=== PATIENT | male | born 1980 | race Two or more races ===

== ENCOUNTER 2021-11-30 08:07 | Inpatient (IN) | payer MEDICAID, OTHER ==
[~2021-11-30] VITALS: Ht 170.2 cm; Wt 91.0 kg
[2021-11-30] MEDS ORDERED: ONDANSETRON HCL 4 MG/2 ML VIAL IV ONE (08:30)
[2021-11-30] MEDS ORDERED: SODIUM CHLORIDE 0.9% 1,000 ML IV ONE ×2 (08:30→09:45)
[2021-11-30] MEDS ORDERED: HYDROmorphone HCL 2 MG/ML VL/or syr IV ONE ×2 (08:30→11:30)
[2021-11-30 09:13] LABS: Basophils # (auto) 0 10 ^3/uL (0-0.2); Basophils % (auto) 0.5 % (0.0-2.0); Eosinophils # (auto) 0 10 ^3/uL (0-0.8); Eosinophils % (auto) 0.7 % (0.0-7.0); Hematocrit 40.1 % (41.0-53.0); Hemoglobin 13.4 g/dL (13.5-17.5); Lymphocytes # (auto) 2.8 10 ^3/uL (0.4-5.4); Lymphocytes % (auto) 40.5 % (10.0-50.0); Mean Corpuscular Hemoglobin 29.7 pg (28.0-32.0); Mean Corpuscular Hgb Conc. 33.4 g/dL (32.0-36.0); Mean Corpuscular Volume 88.8 fL (80.0-100.0); Monocytes # (auto) 0.5 10 ^3/uL (0-1.3); Monocytes % (auto) 7.9 % (0.0-12.0); Neutrophils # (auto) 3.5 10 ^3/uL (1.6-8.6); Neutrophils % (auto) 50.4 % (37.0-80.0); Nucleated Red Blood Cells % 0.1 %; Red Blood Cells 4.52 10^6/uL (4.5-5.90); Red Cell Distribution Width 14.9 % (11.8-14.3); White Blood Cell 6.9 10^3/uL (4.4-10.8)
[2021-11-30 09:21] LABS: Urine Bacteria NONE SEEN /hpf (None Seen); Urine Blood 3+ /uL (Negative); Urine Budding Yeast FEW /hpf (None Seen); Urine WBC 2 /hpf (0 - 3)
[2021-11-30 09:25] LABS: Urine Specific Gravity 1.023 (1.001-1.035)
[2021-11-30 09:32] LABS: Calcium 9.9 mg/dL (8.5-10.1)
[2021-11-30 09:35] LABS: Bilirubin, Total 0.4 mg/dL (0.2-1.0); Total Protein 8.6 g/dL (6.4-8.2)
[2021-11-30] MEDS ORDERED: cefTRIAXone 1GM/50ML D5W 50 ML IV ONE (09:45)
[2021-11-30] MEDS ORDERED: TAMSULOSIN HYDROCHLORIDE 0.4 MG CAP PO ONE (10:00)
[2021-11-30] MEDS ORDERED: MORPHINE SULFATE INJ 2 MG/ml SYRG IV PRN (10:30)
[2021-11-30] MEDS ORDERED: NITROGLYCERIN 0.4 MG SL TAB SL PRN (10:30)
[2021-11-30] MEDS ORDERED: KETOROLAC TROMETH 30 MG/ML 1ML VIAL IV ONE (11:30)
[2021-11-30] MEDS ORDERED: LORazepam 0.5 MG TAB PO PRN (12:30)
[2021-11-30] MEDS ORDERED: ONDANSETRON HCL 4 MG/2 ML VIAL IV PRN (12:30)
[2021-11-30] MEDS ORDERED: DOCUSATE SOD 100 MG CAP PO PRN (12:30)
[2021-11-30] MEDS ORDERED: hydrALAZINE HCL 20 MG/ML VL IV PRN (12:30)
[2021-11-30] MEDS ORDERED: DEXTROSE (50%) 50ML SYRG IV PRN (12:30)
[2021-11-30] MEDS ORDERED: MANNITOL FTV 25% 12.5 GM/50 ML 50 ML IV ONE (12:45)
[2021-11-30 12:59] LABS: Phosphorus 3.1 mg/dL (2.5-4.90)
[2021-11-30 13:05] LABS: INR 0.99 (0.9-1.15); Partial Thromboplastin Time 26.2 sec (23.6-33.0)
[2021-11-30] MEDS: SODIUM CHLORIDE 0.9% 1,000 ML IV SCH (15:14)
[2021-11-30] MEDS: KETOROLAC TROMETH 30 MG/ML 1ML VIAL IV PRN ×2 (16:07→23:10)
[2021-11-30 17:00] VITALS: BP 124/77
[2021-11-30] MEDS: InsuLIN REG 1unit/0.01ml Soln (100units/ml) SC SCH ×2 (17:00→22:37)
[2021-11-30] MEDS: ACCU-CHEK COMFORT CURVE STRIP VI SCH ×2 (17:06→22:33)
[2021-11-30] MEDS: TAMSULOSIN HYDROCHLORIDE 0.4 MG CAP PO SCH (17:44)
[2021-11-30] MEDS: HYDROcodone-ACET 5/325MG TAB PO PRN (17:44)
[2021-11-30] MEDS ORDERED: GLIP10TA9 PO (18:33)
[2021-11-30] MEDS ORDERED: ASPI-487 PO (18:33)
[2021-11-30] MEDS ORDERED: ASPI-325 PO (18:33)
[2021-11-30] MEDS ORDERED: ROSU1TAB14 PO (18:33)
[2021-11-30] MEDS ORDERED: METF-372 PO (18:33)
[2021-11-30] MEDS ORDERED: LISI-716 PO (18:33)
[2021-11-30 20:00] VITALS: BP 136/86
[2021-11-30] MEDS: HYDROmorphone HCL 2 MG/ML VL/or syr IV PRN (20:06)
[2021-11-30 22:00] VITALS: BP 113/75
[2021-11-30] MEDS: ATORVASTATIN 20 MG TAB PO SCH (22:33)
[2021-12-01] MEDS: HYDROmorphone HCL 2 MG/ML VL/or syr IV PRN ×3 (03:24→12:20)
[2021-12-01] MEDS: SODIUM CHLORIDE 0.9% 1,000 ML IV SCH ×2 (03:25→15:18)
[2021-12-01 05:00] VITALS: BP 118/70
[2021-12-01] MEDS: ACCU-CHEK COMFORT CURVE STRIP VI SCH ×4 (06:28→22:13)
[2021-12-01] MEDS: InsuLIN REG 1unit/0.01ml Soln (100units/ml) SC SCH ×4 (06:29→22:21)
[2021-12-01 06:54] LABS: Basophils # (auto) 0 10 ^3/uL (0-0.2); Basophils % (auto) 0.5 % (0.0-2.0); Eosinophils # (auto) 0.1 10 ^3/uL (0-0.8); Eosinophils % (auto) 1.1 % (0.0-7.0); Hematocrit 31.2 % (41.0-53.0); Hemoglobin 10.9 g/dL (13.5-17.5); Lymphocytes % (auto) 30.5 % (10.0-50.0); Mean Corpuscular Hemoglobin 31.1 pg (28.0-32.0); Mean Corpuscular Volume 88.8 fL (80.0-100.0); Monocytes # (auto) 0.6 10 ^3/uL (0-1.3); Monocytes % (auto) 9.3 % (0.0-12.0); Neutrophils # (auto) 3.9 10 ^3/uL (1.6-8.6); Neutrophils % (auto) 58.6 % (37.0-80.0); Nucleated Red Blood Cells % 0.1 %; Red Blood Cells 3.52 10^6/uL (4.5-5.90); White Blood Cell 6.6 10^3/uL (4.4-10.8)
[2021-12-01 07:25] LABS: INR 0.99 (0.9-1.15); Partial Thromboplastin Time 25.3 sec (23.6-33.0)
[2021-12-01 08:00] VITALS: BP_SYST 121; BP_SYST 136; BP_DIAS 75; BP_DIAS 86
[2021-12-01] MEDS ORDERED: MANNITOL FTV 25% 12.5 GM/50 ML 50 ML IV ONE (09:15)
[2021-12-01] MEDS: cefTRIAXone 1GM/50ML D5W 50 ML IV SCH (09:21)
[2021-12-01 09:30] LABS: Chloride 110 mmol/L (98-107); Potassium 4.7 mmol/L (3.5-5.1); Sodium 140 mmol/L (136-145)
[2021-12-01 09:37] LABS: Thyroid Stimulating Hormone 1.38 uIU/mL (0.358-3.74)
[2021-12-01 09:38] LABS: Alanine Aminotransferase 45 U/L (16-61); Albumin 3.1 g/dL (3.4-5.0); Alkaline Phosphatase 53 U/L (45-117); Anion Gap 9 (5-15); Aspartate Aminotransferase 17 U/L (15-37); BUN/Creatinine Ratio 15.6; Bilirubin, Total 0.4 mg/dL (0.2-1.0); Blood Urea Nitrogen 34 mg/dL (7-18); Calcium 8.8 mg/dL (8.5-10.1); Carbon Dioxide 21 mmol/L (21-32); Cholesterol 283 mg/dL (< 200); Creatine Kinase IFCC 66 U/L (39-308); GFR African American 43 mL/min; GFR Non-African American 35 mL/min; Glucose 153 mg/dL (74-106); HDL Cholesterol 31 mg/dL (40-59); Lipase 207 U/L (73-393); Magnesium 1.9 mg/dL (1.6-2.6); Phosphorus 3.8 mg/dL (2.5-4.90); Total Protein 6.8 g/dL (6.4-8.2); Triglycerides 832 mg/dL (< 150)
[2021-12-01] MEDS ORDERED: BENAZEPRIL HCL 10 MG TAB PO SCH (10:00)
[2021-12-01] MEDS ORDERED: ENOXAPARIN SOD 40 MG/0.4 ML SYRINGE SC SCH (10:00)
[2021-12-01] MEDS ORDERED: ASPirin 81 mg TAB PO SCH (10:00)
[2021-12-01] MEDS ORDERED: FAMOTIDINE (10MG/ML) 2ML VL IV SCH (10:00)
[2021-12-01 11:09] LABS: BUN/Creatinine Ratio 14.3; Calcium 8.4 mg/dL (8.5-10.1); Potassium 3.9 mmol/L (3.5-5.1)
[2021-12-01] MEDS ORDERED: LACTULOSE 20Gm/30ML SOLN PO ONE (11:15)
[2021-12-01 12:00] VITALS: BP 119/77
[2021-12-01] MEDS: HYDROcodone-ACET 5/325MG TAB PO PRN (14:28)
[2021-12-01] MEDS: MORPHINE SULFATE INJ 2 MG/ml SYRG IV PRN ×2 (15:17→20:10)
[2021-12-01 16:00] VITALS: BP 127/76
[2021-12-01] MEDS: TAMSULOSIN HYDROCHLORIDE 0.4 MG CAP PO SCH (17:59)
[2021-12-01 18:12] LABS: Urine WBC None Seen /hpf (0 - 3)
[2021-12-01 18:37] LABS: Amphetamine Screen, Urine NEGATIVE (NEGATIVE); Protein, Urine 22.8 mg/dL (0.0-11.9); Sodium Urine 106 mmol/L (40-220)
[2021-12-01 18:46] LABS: Barbiturate Scree,Urine NEGATIVE (NEGATIVE); Benzodiazephine Screen, Urine NEGATIVE (NEGATIVE); Cannabinoid Screen, Urine NEGATIVE (NEGATIVE); Cocaine Screen, Urine NEGATIVE (NEGATIVE); Opiate Scree,Urine POSITIVE (NEGATIVE); Phencyclidine Screen, Urine NEGATIVE (NEGATIVE)
[2021-12-01 18:58] LABS: Urine Bacteria NONE SEEN /hpf (None Seen); Urine Blood 1+ /uL (Negative); Urine Specific Gravity 1.023 (1.001-1.035)
[2021-12-01 22:00] VITALS: BP 129/77
[2021-12-01] MEDS: ATORVASTATIN 20 MG TAB PO SCH (22:13)
[2021-12-01] MEDS ORDERED: KETOROLAC TROMETH 30 MG/ML 1ML VIAL IV ONE (23:00)
[2021-12-02 05:00] VITALS: BP 127/78
[2021-12-02] MEDS: SODIUM CHLORIDE 0.9% 1,000 ML IV SCH ×3 (05:42→22:05)
[2021-12-02] MEDS: HYDROcodone-ACET 5/325MG TAB PO PRN ×2 (05:46→22:15)
[2021-12-02 06:15] LABS: Basophils # (auto) 0.1 10 ^3/uL (0-0.2); Basophils % (auto) 1.3 % (0.0-2.0); Eosinophils # (auto) 0.1 10 ^3/uL (0-0.8); Eosinophils % (auto) 1.9 % (0.0-7.0); Hemoglobin 11.4 g/dL (13.5-17.5); Lymphocytes # (auto) 1.7 10 ^3/uL (0.4-5.4); Lymphocytes % (auto) 31.7 % (10.0-50.0); Mean Corpuscular Hemoglobin 30.6 pg (28.0-32.0); Mean Corpuscular Hgb Conc. 34.5 g/dL (32.0-36.0); Mean Corpuscular Volume 88.7 fL (80.0-100.0); Monocytes # (auto) 0.5 10 ^3/uL (0-1.3); Monocytes % (auto) 10.5 % (0.0-12.0); Neutrophils # (auto) 2.9 10 ^3/uL (1.6-8.6); Neutrophils % (auto) 54.6 % (37.0-80.0); Nucleated Red Blood Cells % 0.1 %; Red Blood Cells 3.72 10^6/uL (4.5-5.90); Red Cell Distribution Width 14.9 % (11.8-14.3); White Blood Cell 5.2 10^3/uL (4.4-10.8)
[2021-12-02 06:24] LABS: Potassium 3.7 mmol/L (3.5-5.1)
[2021-12-02 06:30] LABS: BUN/Creatinine Ratio 9.5; Calcium 8.8 mg/dL (8.5-10.1)
[2021-12-02] MEDS ORDERED: VANCOMYCIN PER PHARMACY 0 MG IV SCH (07:00)
[2021-12-02] MEDS: ACCU-CHEK COMFORT CURVE STRIP VI SCH ×4 (07:42→22:04)
[2021-12-02] MEDS: InsuLIN REG 1unit/0.01ml Soln (100units/ml) SC SCH ×4 (07:49→22:04)
[2021-12-02 08:00] VITALS: BP 140/86
[2021-12-02 08:20] VITALS: BP 136/86
[2021-12-02] MEDS ORDERED: MANNITOL FTV 25% 12.5 GM/50 ML 50 ML IV ONE (08:30)
[2021-12-02] MEDS: VANCOMYCIN 1GM/250ML 250 ML IV ONE ×2 (08:33→11:04)
[2021-12-02 12:00] VITALS: BP 124/75
[2021-12-02] MEDS: HYDROmorphone HCL 2 MG/ML VL/or syr IV PRN ×2 (12:21→18:44)
[2021-12-02] MEDS: cefTRIAXone 1GM/50ML D5W 50 ML IV SCH (13:30)
[2021-12-02 16:00] VITALS: BP 132/86
[2021-12-02] MEDS: TAMSULOSIN HYDROCHLORIDE 0.4 MG CAP PO SCH (18:42)
[2021-12-02] MEDS: DOCUSATE SOD 100 MG CAP PO SCH (22:04)
[2021-12-02 22:54] VITALS: BP 151/90
[2021-12-03] MEDS: HYDROmorphone HCL 2 MG/ML VL/or syr IV PRN ×6 (01:08→22:00)
[2021-12-03 04:57] VITALS: BP 137/82
[2021-12-03] MEDS: ACCU-CHEK COMFORT CURVE STRIP VI SCH ×4 (06:24→22:45)
[2021-12-03] MEDS: InsuLIN REG 1unit/0.01ml Soln (100units/ml) SC SCH ×4 (06:26→22:46)
[2021-12-03 06:59] LABS: Basophils # (auto) 0 10 ^3/uL (0-0.2); Basophils % (auto) 0.5 % (0.0-2.0); Eosinophils # (auto) 0.1 10 ^3/uL (0-0.8); Eosinophils % (auto) 1.4 % (0.0-7.0); Hematocrit 31.6 % (41.0-53.0); Hemoglobin 10.7 g/dL (13.5-17.5); Lymphocytes # (auto) 1.7 10 ^3/uL (0.4-5.4); Lymphocytes % (auto) 24.5 % (10.0-50.0); Mean Corpuscular Hgb Conc. 33.8 g/dL (32.0-36.0); Mean Corpuscular Volume 88.6 fL (80.0-100.0); Monocytes % (auto) 14.5 % (0.0-12.0); Neutrophils % (auto) 59.1 % (37.0-80.0); Nucleated Red Blood Cells % 0.1 %; Red Blood Cells 3.56 10^6/uL (4.5-5.90); Red Cell Distribution Width 15.1 % (11.8-14.3); White Blood Cell 6.8 10^3/uL (4.4-10.8)
[2021-12-03 07:17] LABS: Potassium 3.8 mmol/L (3.5-5.1)
[2021-12-03 07:23] LABS: Albumin 2.8 g/dL (3.4-5.0); BUN/Creatinine Ratio 7.8; Bilirubin, Total 0.7 mg/dL (0.2-1.0); Calcium 8.7 mg/dL (8.5-10.1); Total Protein 7.1 g/dL (6.4-8.2)
[2021-12-03] MEDS: cefTRIAXone 1GM/50ML D5W 50 ML IV SCH (08:52)
[2021-12-03] MEDS: DOCUSATE SOD 100 MG CAP PO SCH ×2 (08:53→21:45)
[2021-12-03 09:00] VITALS: BP 139/87
[2021-12-03] MEDS ORDERED: VANCOMYCIN 1GM/250ML 250 ML IV SCH (09:00)
[2021-12-03] MEDS: SODIUM CHLORIDE 0.9% 1,000 ML IV SCH ×2 (11:58→18:00)
[2021-12-03] MEDS: HYDROcodone-ACET 5/325MG TAB PO PRN ×2 (11:58→17:14)
[2021-12-03 13:00] VITALS: BP 145/90
[2021-12-03] MEDS ORDERED: LACTULOSE 20Gm/30ML SOLN PO ONE (13:30)
[2021-12-03 17:00] VITALS: BP 150/86
[2021-12-03] MEDS: TAMSULOSIN HYDROCHLORIDE 0.4 MG CAP PO SCH (17:08)
[2021-12-03] MEDS: LACTULOSE 20Gm/30ML SOLN PO SCH (21:45)
[2021-12-03 22:00] VITALS: BP 179/81
[2021-12-04] MEDS: HYDROmorphone HCL 2 MG/ML VL/or syr IV PRN ×6 (01:55→22:20)
[2021-12-04] MEDS: SODIUM CHLORIDE 0.9% 1,000 ML IV SCH ×2 (04:07→14:02)
[2021-12-04 05:00] VITALS: BP 137/81
[2021-12-04] MEDS: ACCU-CHEK COMFORT CURVE STRIP VI SCH ×4 (06:03→22:10)
[2021-12-04] MEDS: InsuLIN REG 1unit/0.01ml Soln (100units/ml) SC SCH ×4 (06:04→22:17)
[2021-12-04 06:42] LABS: Potassium 3.9 mmol/L (3.5-5.1)
[2021-12-04 06:47] LABS: BUN/Creatinine Ratio 6.9; Calcium 8.6 mg/dL (8.5-10.1)
[2021-12-04 08:00] VITALS: BP_SYST 130; BP_SYST 144; BP_DIAS 93; BP_DIAS 97
[2021-12-04] MEDS: cefTRIAXone 1GM/50ML D5W 50 ML IV SCH (08:38)
[2021-12-04] MEDS: HYDROcodone-ACET 5/325MG TAB PO PRN ×2 (08:39→16:22)
[2021-12-04] MEDS: DOCUSATE SOD 100 MG CAP PO SCH ×2 (09:55→22:10)
[2021-12-04] MEDS: LACTULOSE 20Gm/30ML SOLN PO SCH ×2 (09:55→22:10)
[2021-12-04] MEDS ORDERED: MAGNESIUM CITRATE SOLUTION 300 ML BTL PO ONE (11:15)
[2021-12-04] MEDS ORDERED: MANNITOL FTV 25% 12.5 GM/50 ML 50 ML IV ONE (11:15)
[2021-12-04 12:00] VITALS: BP 168/96
[2021-12-04 16:00] VITALS: BP 160/100
[2021-12-04] MEDS: TAMSULOSIN HYDROCHLORIDE 0.4 MG CAP PO SCH (18:02)
[2021-12-04 22:00] VITALS: BP 145/84
[2021-12-05] MEDS: SODIUM CHLORIDE 0.9% 1,000 ML IV SCH ×3 (00:03→20:21)
[2021-12-05] MEDS: HYDROmorphone HCL 2 MG/ML VL/or syr IV PRN ×2 (02:20→06:45)
[2021-12-05 05:00] VITALS: BP 145/97
[2021-12-05] MEDS: HYDROcodone-ACET 5/325MG TAB PO PRN ×2 (05:35→20:21)
[2021-12-05] MEDS: ACCU-CHEK COMFORT CURVE STRIP VI SCH ×4 (06:07→22:27)
[2021-12-05] MEDS: InsuLIN REG 1unit/0.01ml Soln (100units/ml) SC SCH ×4 (06:19→22:39)
[2021-12-05 07:21] LABS: Basophils # (auto) 0 10 ^3/uL (0-0.2); Basophils % (auto) 0.6 % (0.0-2.0); Eosinophils # (auto) 0.1 10 ^3/uL (0-0.8); Eosinophils % (auto) 1.2 % (0.0-7.0); Hematocrit 29.5 % (41.0-53.0); Hemoglobin 10.1 g/dL (13.5-17.5); Lymphocytes % (auto) 16.2 % (10.0-50.0); Mean Corpuscular Hemoglobin 30.9 pg (28.0-32.0); Mean Corpuscular Hgb Conc. 34.4 g/dL (32.0-36.0); Mean Corpuscular Volume 89.8 fL (80.0-100.0); Monocytes % (auto) 15.3 % (0.0-12.0); Neutrophils # (auto) 4.2 10 ^3/uL (1.6-8.6); Neutrophils % (auto) 66.7 % (37.0-80.0); Nucleated Red Blood Cells % 0.2 %; Red Blood Cells 3.29 10^6/uL (4.5-5.90); Red Cell Distribution Width 14.7 % (11.8-14.3); White Blood Cell 6.2 10^3/uL (4.4-10.8)
[2021-12-05 07:37] LABS: BUN/Creatinine Ratio 6.5; Calcium 8.2 mg/dL (8.5-10.1); Potassium 3.9 mmol/L (3.5-5.1)
[2021-12-05 08:00] VITALS: BP 165/92
[2021-12-05] MEDS: cefTRIAXone 1GM/50ML D5W 50 ML IV SCH (09:55)
[2021-12-05] MEDS: DOCUSATE SOD 100 MG CAP PO SCH ×2 (09:55→21:42)
[2021-12-05] MEDS: LACTULOSE 20Gm/30ML SOLN PO SCH ×2 (09:55→21:42)
[2021-12-05 12:00] VITALS: BP 157/93
[2021-12-05] MEDS ORDERED: MANNITOL FTV 25% 12.5 GM/50 ML 50 ML IV ONE (12:45)
[2021-12-05 16:00] VITALS: BP 148/86
[2021-12-05] MEDS: TAMSULOSIN HYDROCHLORIDE 0.4 MG CAP PO SCH (17:45)
[2021-12-05 22:18] VITALS: BP 127/70
[2021-12-06 05:00] VITALS: BP 135/76
[2021-12-06] MEDS: SODIUM CHLORIDE 0.9% 1,000 ML IV SCH ×2 (05:22→18:25)
[2021-12-06] MEDS: ACCU-CHEK COMFORT CURVE STRIP VI SCH ×4 (06:40→21:59)
[2021-12-06] MEDS: InsuLIN REG 1unit/0.01ml Soln (100units/ml) SC SCH ×4 (06:43→22:03)
[2021-12-06 08:00] VITALS: BP 140/83
[2021-12-06] MEDS: DOCUSATE SOD 100 MG CAP PO SCH ×2 (09:37→21:59)
[2021-12-06] MEDS: LACTULOSE 20Gm/30ML SOLN PO SCH ×2 (09:37→21:59)
[2021-12-06] MEDS: cefTRIAXone 1GM/50ML D5W 50 ML IV SCH (09:37)
[2021-12-06] MEDS: HYDROcodone-ACET 5/325MG TAB PO PRN (10:42)
[2021-12-06 12:00] VITALS: BP 140/84
[2021-12-06 17:00] VITALS: BP 150/84
[2021-12-06] MEDS: TAMSULOSIN HYDROCHLORIDE 0.4 MG CAP PO SCH (18:16)
[2021-12-06 22:00] VITALS: BP 134/76
[2021-12-07 05:00] VITALS: BP 148/86
[2021-12-07 05:59] LABS: BUN/Creatinine Ratio 10.3; Calcium 8.6 mg/dL (8.5-10.1); Potassium 3.5 mmol/L (3.5-5.1)
[2021-12-07] MEDS: SODIUM CHLORIDE 0.9% 1,000 ML IV SCH ×2 (06:10→12:00)
[2021-12-07] MEDS: ACCU-CHEK COMFORT CURVE STRIP VI SCH ×2 (06:54→13:32)
[2021-12-07] MEDS: InsuLIN REG 1unit/0.01ml Soln (100units/ml) SC SCH ×2 (06:55→13:32)
[2021-12-07 09:00] VITALS: BP 133/82
[2021-12-07] MEDS: cefTRIAXone 1GM/50ML D5W 50 ML IV SCH (09:15)
[2021-12-07] MEDS: LACTULOSE 20Gm/30ML SOLN PO SCH (09:16)
[2021-12-07] MEDS: DOCUSATE SOD 100 MG CAP PO SCH (09:16)
[2021-12-07 13:00] VITALS: BP 142/65
[2021-12-07 15:12] VITALS: BP 142/65
== END 2021-12-07 16:00 | disposition home or self-care (01) | DRG 463 ==
LOC: ER 08:07 → OVERFLOW 10:30 → EAST 17:03
PROVIDERS: ADMIT Hospitalist; ATTEND Internal Medicine
DX: N13.6 Pyonephrosis (principal); N17.0 Acute kidney failure with tubular necrosis; E66.9 Obesity, unspecified; E78.5 Hyperlipidemia, unspecified; I10 Essential (primary) hypertension; I25.10 Atherosclerotic heart disease of native coronary artery without angina pectoris; Z20.822 Contact with and (suspected) exposure to COVID-19; R79.89 Other specified abnormal findings of blood chemistry; K59.00 Constipation, unspecified; Z79.82 Long term (current) use of aspirin
CPT/HCPCS: 36415; 74018; 74176; 76775; 80048; 80053; 80061; 80307; 81001; 82360; 82550; 82728; 82962; 83036; 83615; 83690; 83735; 83880; 84100; 84156; 84300; 84439; 84443; 84484; 84550; 85025; 85379; 85610; 85652; 85730; 87040; 87086; 93005; 96365; 96375; G0378; J0696; J1815; J1885; J2405; J3490

== ENCOUNTER 2022-02-25 15:01 | Emergency (ER) | payer MEDICAID ==
[~2022-02-25] VITALS: Ht 170.2 cm; Wt 88.6 kg
[~2022-02-25 15:01] MED LIST: ASPI-325 PO; ASPI-487 PO; GLIP10TA9 PO; LISI-716 PO; METF-372 PO; ROSU1TAB14 PO
[2022-02-25 15:17] VITALS: BP 145/100
[2022-02-25 15:30] LABS: Urine WBC None Seen /hpf (0 - 3)
[2022-02-25 15:40] LABS: Urine Bacteria NONE SEEN /hpf (None Seen); Urine Blood 3+ /uL (Negative); Urine Specific Gravity 1.018 (1.001-1.035)
[2022-02-25] MEDS ORDERED: TAM04C PO (16:57)
[2022-02-25] MEDS ORDERED: CEPH-322 PO (16:57)
[2022-02-25] MEDS ORDERED: KETOROLAC TROMETH 30 MG/ML 1ML VIAL IV ONE (17:00)
[2022-02-25] MEDS ORDERED: SODIUM CHLORIDE 0.9% 1,000 ML IV ONE (17:00)
[2022-02-25] MEDS ORDERED: TAMSULOSIN HYDROCHLORIDE 0.4 MG CAP PO ONE (17:00)
[2022-02-25] MEDS ORDERED: KETOROLAC TROMETH 60MG/2ML VIAL IM ONE (20:15)
== END 2022-02-25 20:18 | disposition home or self-care (01) ==
LOC: ER 15:02
DX: N20.0 Calculus of kidney (principal); R31.9 Hematuria, unspecified; E11.9 Type 2 diabetes mellitus without complications; I10 Essential (primary) hypertension; Z79.82 Long term (current) use of aspirin; Z79.899 Other long term (current) drug therapy
CPT/HCPCS: 74176; 81001; 96372; 99284; J1885

== ENCOUNTER 2023-12-06 10:13 | Emergency (ER) | payer MEDICAID ==
[~2023-12-06] VITALS: Ht 170.2 cm; Wt 79.8 kg
[~2023-12-06 10:13] MED LIST changes: +CEPH250C PO; -LISI-716 PO; +LISI10TA34 PO; -ROSU1TAB14 PO; +ROSU20TA56 PO; +TAMS-35 PO
[2023-12-06 11:10] VITALS: BP 127/90; PULSE 82; RESP 18; TEMP 98; O2SAT 98
[2023-12-06] MEDS: FLUORESCEIN SOD OPTH TEST STRIP RIGHTEYE ONE (11:26)
[2023-12-06] MEDS: TETRACAINE HCL 0.5% OPTH(EYE) SOLN 4ML RIGHTEYE ONE (11:26)
[2023-12-06] MEDS ORDERED: ERY05OO OP (11:49)
== END 2023-12-06 12:03 | disposition home or self-care (01) ==
LOC: ER 10:13
DX: H57.8A1 Foreign body sensation, right eye (principal); E78.5 Hyperlipidemia, unspecified; E11.9 Type 2 diabetes mellitus without complications; I10 Essential (primary) hypertension